=== PATIENT | male | born 1980 | race Caucasian/White ===

== ENCOUNTER 2019-10-19 17:15 | Emergency (ER) | payer MEDICARE, MEDICAID ==
[~2019-10-19] VITALS: Ht 170.2 cm; Wt 86.4 kg
[2019-10-19 17:29] VITALS: BP 155/93
--- NOTE | 2019-10-19 18:18 | NUR ---
JENNA Bhardwaj at bedside.
--- NOTE | 2019-10-19 18:32 | NUR ---
VASCULAR CALLED MIKE 183
--- NOTE | 2019-10-19 18:37 | NUR ---
Vascular at patient's bedside.
== END 2019-10-19 19:23 | disposition home or self-care (01) ==
LOC: ER 17:15
DX: R60.0 Localized edema (principal); Z60.2 Problems related to living alone
CPT/HCPCS: 93971; 99284

== ENCOUNTER 2023-12-02 17:20 | Emergency (ER) | payer MEDICARE, MEDICAID ==
[~2023-12-02] VITALS: Ht 167.6 cm; Wt 80.0 kg
[2023-12-02 17:29] VITALS: BP 164/82; PULSE 99; RESP 16; TEMP 98; O2SAT 98
[2023-12-02] MEDS ORDERED: PERM60CR19 TOP (18:14)
[2023-12-02] MEDS ORDERED: KEN0.1O TOP (18:14)
== END 2023-12-02 18:37 | disposition home or self-care (01) ==
LOC: ER 17:21
DX: F22 Delusional disorders (principal); F23 Brief psychotic disorder; T65.91XA Toxic effect of unspecified substance, accidental (unintentional), initial encounter; L25.3 Unspecified contact dermatitis due to other chemical products; Y92.099 Unspecified place in other non-institutional residence as the place of occurrence of the external cause
CPT/HCPCS: 99283